=== PATIENT | female | born 1975 | race Caucasian/White ===

== ENCOUNTER 2016-09-14 20:32 | Emergency (ER) | payer SELFPAY ==
[2016-09-14 21:07] VITALS: BP 144/88
[2016-09-14] MEDS ORDERED: Amoxicillin/Clavulanate TAB* 875 MG PO ONE (21:23)
[2016-09-14] MEDS ORDERED: Tetan/Diph/Pertus SYR(Tdap)* 0.5 ML SYR(BOOSTRIX) use SYR IM ONE (21:23)
--- NOTE | 2016-09-14 21:35 | UC ---
Bite Injury/Animal HPI - HPI Summary HPI Summary: AT 3PM TODAY WHILE WORKING AT [employer], WAS BITTEN BY DOG ON LEFT THUMB WITH THREE PUNCTURE AREA AROUND CIRCUMFERENCE OF THUMB. LAST TETANUS UNKNOWN. - History of Current Complaint Chief Complaint: UCBiteInjury Stated Complaint: DOG BITE Time Seen by Provider: 09/14/16 21:10 Hx Obtained From: Patient Hx Last Menstrual Period: 09/12/16 Severity Currently: Mild Severity Initially: Mild Onset/Duration: Sudden Onset, Lasting Hours, Still Present Type of Bite: Pet Has Animal Been Immunized?: Yes Character: Puncture, Abrasion/Laceration Aggravating Factor(s): Exertion Alleviating Factor(s): Rest Associated Signs And Symptoms: Positive: Drainage, Swelling. Negative: Fever, Erythema, Lymphadenopathy, Numbness/Tingling, Limited ROM Hx of Bite: Provoked by: - [employer] Animal Available for Observation: Yes - Allergies/Home Medications Allergies/Adverse Reactions: Allergies Allergy/AdvReac Type Severity Reaction Status Date / Time No Known Allergies Allergy Verified 09/14/16 21:02 PMH/Surg Hx/FS Hx/Imm Hx Previously Healthy: Yes - Surgical History Surgical History: None - Family History Known Family History: Negative: Blood Disorder - Social History Occupation: Employed Full-time Lives: With Family Alcohol Use: Occasionally Substance Use Type: None Smoking Status (MU): Never Smoked Tobacco - Immunization History Most Recent Tetanus Shot: Pt states not up to date. Review of Systems Constitutional: Negative Skin: Other - 3 X PUNCTURE WOUND 0.5 CM LACERATION TO LEFT THUMB Eyes: Negative ENT: Negative Respiratory: Negative Cardiovascular: Negative Gastrointestinal: Negative Genitourinary: Negative Motor: Negative Neurovascular: Negative Musculoskeletal: Myalgia - LEFT THUMB Neurological: Negative Psychological: Negative All Other Systems Reviewed And Are Negative: Yes Physical Exam Triage Information Reviewed: Yes Appearance: Well-Appearing, No Pain Distress, Well-Nourished Vital Signs: Initial Vital Signs Temp 99 F 09/14/16 21:02 Pulse 78 09/14/16 21:02 Resp 16 09/14/16 21:02 BP 144/88 09/14/16 21:02 Pulse Ox 100 09/14/16 21:02 Vital Signs Reviewed: Yes Eye Exam: Normal Eyes: Positive: Conjunctiva Clear ENT Exam: Normal Dental Exam: Normal Neck exam: Normal Neck: Positive: Supple, Nontender, No Lymphadenopathy Respiratory Exam: Normal Respiratory: Positive: Chest non-tender, Lungs clear, Normal breath sounds, No respiratory distress, No accessory muscle use Cardiovascular Exam: Normal Cardiovascular: Positive: RRR, No Murmur Abdominal Exam: Normal Abdomen Description: Positive: Nontender Musculoskeletal: Positive: Strength Intact, ROM Intact, No Edema, Other: - 3 X PUNCTURE WOUNDS TO LEFT THUMB Neurological Exam: Normal Psychological Exam: Normal Bite Injury Course/Dx - Differential Dx/Diagnosis Differential Diagnosis/HQI/PQRI: Laceration, Puncture, Rabies Exposure, Superficial Infection, Deep Space Infection Provider Diagnoses: THREE PUNCTURE WOUND (<0.5CM LACERATIONS) TO LEFT THUMB DUE TO DOG BITE; TETANUS PROPHYLAXIS Discharge - Discharge Plan Condition: Stable Disposition: HOME Prescriptions: Amoxicillin/Clavulanate TAB* [Augmentin TAB 875*] 875 mg PO BID #20 tab Patient Education Materials: Animal Bite (ED), Laceration Without Closure (ED) Referrals: [facility] [place] [facility] REFERRAL [Outside] Paula Reed MD [Medical Doctor] - No Primary Care Phys,NOPCP [Primary Care Provider] -
== END 2016-09-14 22:00 | disposition home or self-care (01) ==
LOC: UCEAST 20:32
DX: S61.032A Puncture wound without foreign body of left thumb without damage to nail, initial encounter (principal); W54.0XXA Bitten by dog, initial encounter; Y93.9 Activity, unspecified; Y92.89 Other specified places as the place of occurrence of the external cause; Y99.0 Civilian activity done for income or pay; Z23 Encounter for immunization
CPT/HCPCS: 90471; 90715; 99202; A9270-GY; G0463